=== PATIENT | female | born 1990 | race Caucasian/White ===

== ENCOUNTER 2024-10-15 08:10 | Outpatient (AMB) | payer OTHER, SELFPAY ==
--- OUTSIDE RECORDS SUMMARY | 2024-10-15 08:14 | XMS_ITS | Clinical Summary ---
Author Organization [facility] ity Address [address] [place] [address] Care Team Providers Care Hospitality Manager Name Role Phone Ariane Vang MD Primary Care Provider [phone] Social History Tobacco Use Types Packs/Day Years Used Date Smoking Tobacco: Never Assessed Comments Unknown Sex and Gender Information Value Date Recorded Sex Assigned at Not on file Legal Sex Female 10:38 AM EST Gender Identity Not on file Sexual Orientation Not on file Last Filed Vital Signs Vital Sign Reading Time Taken Comments Blood Pressure 126/68 07/21/2020 12:00 AM EST Pulse 76 07/21/2020 12:00 AM EST Temperature - - Respiratory Rate - - Oxygen Saturation - - Inhaled Oxygen Concentration - - Weight 137 kg (301 lb 15.8 oz) 07/21/2020 12:00 AM EST Height 175.3 cm (5' 9 ) 07/21/2020 12:00 AM EST Body Mass Index 44.6 07/21/2020 12:00 AM EST Plan of Treatment Health Maintenance Due Date Last Done Comments DTaP,Tdap,and Td Vaccines (1 - Tdap) 2009 Hepatitis B Vaccines (1 of 3 - 19+ 3-dose series) 2009 Cervical Cancer Screening: P ap Smear 11/27/2011 COVID-19 Vaccine (2023-2 5 season) 2024 09/20/2020, 08/23/2020 Influenza Vaccine (Season Ended) 2025 HIB Vaccines Aged Out No longer eligi ble based on patient's age to complete this topic HPV Vaccines Aged Out No longer eligi ble based on patient's age to complete this topic Hepatitis A Vaccines Aged Out No long er eligible based on patient's age to complete this topic IPV Vaccines Aged Out No longer eligi ble based on patient's age to complete this topic MMR Vaccines Aged Out No longer eligi ble based on patient's age to complete this topic Meningococcal ACWY Vaccine Aged Out N o longer eligible based on patient's age to complete this topic Meningococcal B Vaccine Aged Out No l onger eligible based on patient's age to complete this topic Pneumococcal Vaccine: Pediatrics (0 to 5 Years) and At-Risk Patients (6 to 64 Years) Aged Out No longer eligible b ased on patient's age to complete this topic RSV Immunization Patients Under 20 months Aged Out No longer eligible b ased on patient's age to complete this topic Varicella Vaccines Aged Out No longer eligible based on patient's age to complete this topic Care Teams Hospitality Manager Relationship Specialty Start Date End Date Ariane Vang MD PCP - General Family Medicine 12/28/19
--- NOTE | 2024-10-15 10:54 | A.OFFVIS_ITS ---
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 *SEE COMMENTS*: Details: Start time: 10.43am, End time: 11.28am ?I spent 40 minutes speaking with the patient on the phone plus an additional 5 minutes reviewing and updating records for a total of 45 minutes HPI Comments Details: Previous weight loss efforts: diet pills, self diets Wakes up: 7am, Sleeps: 12am Breakfast: 8am (breakfast sandwich) Lunch: 12pm (fruit cups, microwavable 300 calories meals) Dinner: 6.30pm (chicken, pork chops, rice, vegetables) Snacks: 9pm (candy, chips) Exercise: min stepper that tracks calories Beverages: Coffee: none, tea: none, soda: (one Monster per day for 300 calories), juice: home soda machine: 90 josefina/d), ETOH: none PFSH Medical History (Updated 10/15/24 @ 10:56 by Jorge Delacruz MD) Back pain Morbid obesity Surgical History (Updated 10/13/24 @ 15:44 by Debbie Farris CMA) Hx of wisdom tooth extraction Family History (Updated 10/13/24 @ 15:46 by Debbie Farris CMA) Mother Asthma Father No problems noted. Social History (Updated 10/13/24 @ 15:46 by Debbie Farris CMA) Alcohol intake: current Alcohol intake frequency: holidays/special occasions only Patient Tobacco Use Status: Never used Tobacco Telehealth Telehealth Telehealth Platform: Telephone Location of provider rendering services: practice address Location of patient: address on file Patient Identification confirmed using: Name, : Yes Telehealth method: voice only Patient verbally consented to treatment: Yes Patient verbally consented to billing insurance company: Yes Patient informed of any privacy concerns related to visit: Yes Minutes spent on Phone/Video with Pt.: 45 Assessment & Plan Assessment & Plan (1) Morbid obesity: Code(s): E66.01 - Morbid (severe) obesity due to excess calories Category: Medical Plan: 1.? Plan for lap sleeve gastrectomy. If diaphragmatic or ventral hernias are present at time of surgery, these will be repaired laparoscopically as well. I emphasized the importance of close follow-up, adherence to instructions and good communication. The surgery does not replace the need to change your lifestlyle which is the cause of the obesity problem. The surgery provides the motivation to try again to change your lifestyle, it reduces the appetite and make the transition to a better lifestyle easier and doubles the amount of weight you would lose compared to doing the lifestyle change without the surgery. You will need to be on a liquid diet with protein shakes for 2 weeks before surgery to maximize weight loss and boost your nutritional status to recover better from surgery and also for the first two weeks after surgery to let the stomach heal before we introduce other foods. After the first 2 weeks we will introduce protein bars and soft foods like scrambled eggs, cottage cheese and yogurt and after the 6th week will introduce meat, fish and cooked vegetables in small amounts. Over time you should be able to eat everything in small amounts. Side effects like nausea, vomiting, heartburn or abdominal pain are not common in the practice unless you are not following in the practice. This operation requires lifetime commitment to following in our practice and communication with me. You will much less weight and experience side effects if you don?t communicate or not following in the practice. Complications are rare and in our practice is about 1/10 of the national average. However, you can develop bleeding that may require transfusion (hasn?t happened for year in the practice), you may from complications (we did not have any deaths in the practice) and infections. Infections are usually a result of breakdown in communication or not understanding or following directions correctly. They are difficult to treat, they can happen during the first 6 weeks, they may require to be in the hospital for weeks or even months, not being able to eat by mouth and you may have drains and surgeries to try and correct the issue. Other risks and complications include possible conversion to an open procedure, leaks, small bowel obstruction, blood clots, cardiac, or pulmonary complications, as superintendent marine oil terminal complications such as ulcers, insufficient weight loss and vitamin deficiencies. 2. You will receive a link of our software leonora to generate an individualized nutritional and exercise plan specific for you. Please send me a screenshot of the plans you will generate Meal to include lean meat (beef, fish, pork, turkey, chicken), or japanese yogurt, or egg whites, or beans with a salad with olive oil and fruits (berries, pears, apples, kiwi). Avoid salt, breads, potatoes, rice, pasta, desserts. ?3. If you choose shakes, each shake would be drunk slowly, like coffee in a period of 2 hours. ?4. If you choose bars, cut each bar in 4 pieces and eat each piece in 30min ?to make each bar last 2 hours. ?5. I emphasized the importance of measuring accurately the food portion and measure it when serving the food in plate ?6. The meal portions include a specific number of forks of meat and salad. You always eat the meat portion but you can replace up to half of salad/vegetables portion with rice, potatoes or pasta, or a fruit ?if you like. The less you do it the better weight loss will be. ?7. One full-size fork is what it can be scooped on the fork without falling aside and not what can be bit with the fork. Use regular forks like those you find in a typical restaurant. ?8.? Please buy the body composition scale we discussed and send me weight measurements as soon as possible and then once a week. Always include your diet and exercise plan. 9. The best choice would be to purchase a stationary bike, elliptical or treadmill at home that can track calories. You can create and exercise plan with the [employer] leonora. Alternatively you could use the mini stepper you have to burn 300 calories per day, daily. ?10.?It is important of avoiding and for at least 18 months postoperatively and has been discussed at the infosession. ?11. Goal is to lose at least 1.5-2lbs per week ?12. Goal to lose 10% of your weight before surgery, which is about 33lbs. U ltimate weight goal: 290lbs before surgery 13. Please follow the diet plan exactly without any change. If you don't like something about the plan or you feel hungry you need to communicate with me so I can help you revise the plan. You should not change the plan yourself. 14. To be scheduled for EGD to assess the stomach's anatomy. The possibility of biopsies was discussed. Patient needs to avoid use of NSAIDs and aspirin for 1 week prior to EGD. You must be on liquids only the day before your endoscopy. Risks of perforation and bleeding was discussed with the patient. This will be an outpatient procedure with IV sedation. Orders: Orders Insulin Today E66.01 - Morbid (severe) obesity due to excess calories Complete Blood Count Auto Diff Today E66.01 - Morbid (severe) obesity due to excess calories IRON PROFILE Today E66.01 - Morbid (severe) obesity due to excess calories Vitamin B12 and Folate Today E66.01 - Morbid (severe) obesity due to excess calories C Reactive Protein Today E66.01 - Morbid (severe) obesity due to excess calories Vitamin A Today E66.01 - Morbid (severe) obesity due to excess calories Ferritin Today E66.01 - Morbid (severe) obesity due to excess calories Vitamin D 25-OH Total Today E66.01 - Morbid (severe) obesity due to excess calories XR chest 2V Today E66.01 - Morbid (severe) obesity due to excess calories ECG 12 lead EKG Today E66.01 - Morbid (severe) obesity due to excess calories Hemoglobin A1c Today E66.01 - Morbid (severe) obesity due to excess calories H Pylori Breath Test Today E66.01 - Morbid (severe) obesity due to excess calories Lipid Panel Today E66.01 - Morbid (severe) obesity due to excess calories Comprehensive Met. Panel Today E66.01 - Morbid (severe) obesity due to excess calories Zinc Today E66.01 - Morbid (severe) obesity due to excess calories Vitamin B1 Today E66.01 - Morbid (severe) obesity due to excess calories TSH reflex Free T4 Today E66.01 - Morbid (severe) obesity due to excess calories US abdomen comp w elastography Today E66.01 - Morbid (severe) obesity due to excess calories FL upper GI w air Today E66.01 - Morbid (severe) obesity due to excess calories Referrals Behavioral Health Referral E66.01 - Morbid (severe) obesity due to excess calories Nutrition/Dietitian Referral E66.01 - Morbid (severe) obesity due to excess calories
[2024-10-15 11:05] VITALS: BMI 47.7
== END 2024-10-15 11:29 | disposition home or self-care (01) ==
LOC: HO.HBS 08:10
PROVIDERS: Visit Provider Surgery
DX: E66.01 Morbid (severe) obesity due to excess calories (principal); Z68.42 Body mass index [BMI] 45.0-49.9, adult
CPT/HCPCS: 99204

== ENCOUNTER 2024-11-18 10:19 | Outpatient (REF) | payer OTHER, SELFPAY ==
--- NOTE | ~2024-11-18 | XR_ITS ---
EXAMINATION: XR CHEST CLINICAL INFORMATION: E66.01 - Morbid (severe) obesity due to excess calories COMPARISON: None available. TECHNIQUE: 2 views of the chest were obtained. FINDINGS: Linear density in the right mid third lower third lung zone likely represents atelectasis. Lungs are clear and well aerated. Heart size is within normal limits. No pleural effusion is present. XR/XR chest 2V IMPRESSION: Minimal linear atelectasis in the lower right lung. Electronically signed by: Kip Cruz MD 11/18/2024 11:18 AM EDT
[2024-11-18 10:35] LABS: MANUAL DIFF FLAG NO
--- NOTE | 2024-11-18 10:36 | ECG_ITS ---
Test Reason : e66.01 Blood Pressure : */* mmHG Vent. Rate : 59 BPM Atrial Rate : 59 BPM P-R Int : 140 ms QRS Dur : 80 ms QT Int : 418 ms P-R-T Axes : 53 19 21 degrees QTcB Int : 413 ms Sinus bradycardia with sinus arrhythmia Low voltage QRS Borderline ECG No previous ECGs available Referred By: Jorge Delacruz Electronically Signed By: Junior Tripp
[2024-11-18 10:53] LABS: Hematocrit 43.0 % (37.0-47.0); Hemoglobin 14.3 g/dl (12.0-16.0); Imm Gran Abs Auto 0.03 X10*3/uL (0.00-0.03); Imm Gran Pct Auto 0.3 % (0.0-0.4); Lymphocytes Absolute Auto 3.2 X10*3/uL (1.2-4.9); Mean Corpuscular HGB Conc 33.3 g/dl (31.0-35.0); Mean Corpuscular Hemoglobin 28.8 pg (27.0-33.0); Mean Corpuscular Volume 86.5 fL (80.0-98.0); NRBC Abs Auto 0.000 X10*3/uL (0.0-0.012); NRBC Pct Auto 0.0 /100WBC (0.0-0.2); Platelet Count 330 X10*3/uL (160-400); Red Blood Count 4.97 X10*6/uL (4.20-5.50); White Blood Count 11.0 X10*3/uL (4.8-10.8)
--- OUTSIDE RECORDS SUMMARY | 2024-11-18 11:11 | XMS_ITS | Clinical Summary ---
Author Organization [facility] ity Address [address] [place] [address] Care Team Providers Care Drill Press Set Up Operator Radial Name Role Phone Ariane Vang MD Primary Care Provider [phone] Social History Tobacco Use Types Packs/Day Years [...] 5 season) 2024 09/20/2020, 08/23/2020 Influenza Vaccine (#1) 2025 HIB Vaccines Aged Out No longer [...] 5 Years) and At-Risk Patients (6 to 49 Years) Aged Out No longer eligible b ased on patient's age to complete this topic RSV Immunization Patients Under 20 months Aged Out No longer eligible b ased on patient's age to complete this topic Varicella Vaccines Aged Out No longer eligible based on patient's age to complete this topic Care Teams Drill Press Set Up Operator Radial Relationship Specialty Start Date End Date Ariane Vang MD PCP - General Family Medicine 12/28/19
[2024-11-18 11:27] LABS: Alanine Aminotransferase 90 U/L (0-31); Albumin Level 4.5 g/dL (3.5-5.0); Alkaline Phosphatase 110 U/L (39-117); Anion Gap 12 (12-20); Aspartate Amino Transferase 39 U/L (5-31); Blood Urea Nitrogen 17 mg/dL (9-16); Calcium 9.3 mg/dL (8.4-10.2); Carbon Dioxide 27 mmol/L (22-29); Chloride 107 mmol/L (96-108); Cholesterol 159 mg/dL (<200); Estimated Glomerular Filt Rate > 60; HDL Cholesterol 38 mg/dL (>40); Iron 62 mcg/dL (30-160); Percent Iron Saturation 21 % (15-50); Potassium 4.0 mmol/L (3.3-5.1); Sodium 142 mmol/L (135-145); Total Iron Binding Capacity 292 mcg/dL (228-428); Total Protein 7.7 g/dL (6.5-8.0); Triglycerides 78 mg/dL (<150); Unsaturated Iron Binding 230 ug/dL
[2024-11-18 11:40] LABS: Hemoglobin A1C 137.0378 umol/L; Total Hemoglobin (HGBA1C) 3740.1619 umol/L
[2024-11-18 11:50] LABS: Ferritin 119 ng/mL (10-122)
[2024-11-18 11:52] LABS: Folate 9.2 ng/mL (> or = 4.0); Vitamin B12 655 pg/mL (200-900)
== END 2024-11-18 10:20 | disposition home or self-care (01) ==
LOC: HO.US 10:19
PROVIDERS: Visit Provider Surgery
DX: J98.11 Atelectasis (principal); E66.01 Morbid (severe) obesity due to excess calories
CPT/HCPCS: 36415; 71046; 80053; 80061; 82306; 82607; 82728; 82746; 83036; 83525; 83540; 84425; 84443; 84590; 84630; 85025; 86140; 93005

== ENCOUNTER → 2024-11-18 10:36 | Outpatient (BNV) | payer OTHER, SELFPAY | PROVIDERS: Visit Provider Internal Medicine Cardiovascular Disease | DX: R00.1 Bradycardia, unspecified (principal) | CPT/HCPCS: 93010 ==

== ENCOUNTER → 2024-11-18 10:49 | Outpatient (BNV) | payer OTHER, SELFPAY | PROVIDERS: Visit Provider Radiology Diagnostic Radiology | DX: J98.11 Atelectasis (principal) | CPT/HCPCS: 71046 ==

== ENCOUNTER 2024-11-24 12:13 | Outpatient (AMB) | payer OTHER, SELFPAY ==
--- NOTE | 2024-11-24 12:05 | A.OFFWM_ITS ---
Intake Intake Visit Reasons: VIDEO BH Intake Allergies No Known Allergies Allergy (Verified 10/15/24 10:54) Medication List - Last Reconciled 11/24/24 by Estelita Marin LM acetaminophen 500 mg PO Q6H PRN cetirizine (Zyrtec) 10 mg PO DAILY PRN fluoxetine (Prozac) 20 mg PO DAILY food supplemt, lactose-reduced 1 ea PO DAILY ibuprofen 200 mg PO Q6H PRN PFSH Medical History (Updated 11/24/24 @ 15:40 by Jorge Delacruz MD) Back pain Morbid obesity Surgical History (Updated 10/13/24 @ 15:44 by Debbie Farris CMA) Hx of wisdom tooth extraction Family History (Updated 10/13/24 @ 15:46 by Debbie Farris CMA) Mother Asthma Father No problems noted. Social History (Updated 10/13/24 @ 15:46 by Debbie Farris CMA) Alcohol intake: current Alcohol intake frequency: holidays/special occasions only Patient Tobacco Use Status: Never used Tobacco Behavioral Health Assessment Weight Management Therapy Therapy Notes Details PT is a 33 years old self-referred female, who presents for initial a visit to start assessment as part of surgical weight loss program. Presenting Concerns Referral Source WMP-Provider. Reason for referral Completion of behavioral health assessment as part of p rocess for weight-loss surgery. Precipitating Event Obesity Living Situation Current Living Situation Relative's/Guardian's Miladys At risk of losing current housing? No Satisfied with current living situation? Yes Comments Pt lives at her mother's home with her mother and younger brother. Social History Family history and relationship PT is single, never and has no children. Mom and bio-father several years ago, she re- and is now step-father. She has 1 younger brother who is 30. PT reports family dynamics are better now, she is civil with brother and is much better with mom now. 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 Developmental history and status None in the past. She had a neuropsychic assessment for ADHD, waiting for results. Social support Mother, co-workers. 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 Buddhism/Spirituality None reported Cultural/Ethnic information . Legal Involvement and History Current or historical involvement with the legal system? None reported. Education Highest grade completed HS 2 year trade school - Preferred learning style Learn by doing and Visual Currently enrolled in educational program? No Interested in further educational program? No Educational Interests/Skills Certification in Mechanics. 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 No Meaningful activities Video games. Financial Situation Describe current financial situation Comfortable Financial assistance? None Service Service? No Mental Health and Addiction Treatment Current/Past substance abuse? No Comments Alcohol: 2-3 x year. When drinks 2-3 drinks. Cigarettes/Tobacco: none. Cannabis/Edibles: 1 x year - Smoke Current/Past addictive behavior concerns? No Psychiatric history The patient received counseling during middle school for several months, possibly up to a year, but did not engage in further mental health treatment until approximately 3?4 years ago, when she began therapy at [facility] with Sarah Dinh. She currently attends counseling sessions every two weeks. The patient reports having been diagnosed with depression, anxiety, and PTSD. In addition to therapy, she recently initiated medication management services thro [facility]. She sees ROBERTO Garcia, and was started on Prozac (fluoxetine) 20 mg daily last week. She did the Neuropsychological testing with this organization recently for ADHD and will soon get the results. She has no history of psychiatric hospitalization and denies any past or current experiences of suicidal ideation (SI), suicide attempts (Sa), self-harm, or harm to others. She reports no history of mental health crises or safety concerns. Medical and Physical Health Summary Additional Medical History not covered in history Irrational periods. Sexual History concerns None reported. Physical exam in the last year? No (Have not seen a PCP in about 5 years. ) Pain Screening Current pain? Yes Pain in the last few months? Yes Comments Back pain. Manageable today. Trauma/Abuse History History of trauma? Yes (ROBINA: 7) Questionnaires PHQ-9 Over the last 2 weeks, how often have you been bothered by any of the following problems? 1. Little interest or pleasure in doing things: nearly every day 2. Feeling down, depressed, or hopeless: more than half the days 3. Trouble falling or staying asleep, or sleeping too much: several days 4. Feeling tired or having little energy: nearly every day 5. Poor appetite or overeating: more than half the days 6. Feeling bad about yourself - or that you are a failure or have let yourself or your family down: not at all 7. Trouble concentrating on things, such as reading the newspaper or watching television: nearly every day 8. Moving or speaking so slowly that other people could have noticed. Or the opposite - being so fidgety or restless that you have been moving around a lot more than usual: several days 9. Thoughts that you would be better off or of hurting yourself in some way: not at all Total score: 15 Depression Screening Interpretation: Positive (From new PT pack completed on 10/12/24 - new one will be administered at next visit.) Depression Screening Follow-up: Existing condition and In treatment Depression Screening Done: Yes Source: Developed by Drs. Clinton Rodriguez, Gregoria Henao, Antonio Lee and colleagues, with an educational travis from [employer]ourse. Assessment & Plan Assessment & Plan (1) PTSD (post-traumatic stress disorder): Code(s): F43.10 - Post-traumatic stress disorder, unspecified (2) Depression, unspecified: Code(s): F32.A - Depression, unspecified (3) Pre-bariatric surgery psychological evaluation: Code(s): Z71.89 - Other specified counseling Plan The patient was not cleared today as the assessment was not completed. The patient will return in 2-4 weeks to continue the evaluation. Next appointment: 12/16/24 Telehealth Telehealth Telehealth Platform: [facility] Location of provider rendering services: other (Home office. [place], [place]) Location of patient: address on file Patient Identification confirmed using: Name, : Yes Telehealth method: video Patient verbally consented to treatment: Yes Patient verbally consented to billing insurance company: Yes Patient informed of any privacy concerns related to visit: Yes Minutes spent on Phone/Video with Pt.: 55 Coding Level of Care Code New Pt Tele Psy Diag Eval (63010) Patient Type New Diagnoses PTSD (post-traumatic stress disorder) F43.10 Depression, unspecified F32.A Pre-bariatric surgery psychological evaluation Z71.89 Time Spent (min) 55
--- OUTSIDE RECORDS SUMMARY | 2024-11-24 13:13 | XMS_ITS | Clinical Summary ---
Author Organization [facility] ity Address [address] [place] [address] Care Team Providers Care Irrigation Installation Specialist Name Role Phone Ariane Vang MD Primary Care Provider [phone] Social History Tobacco Use Types Packs/Day Years [...] age to complete this topic Care Teams Irrigation Installation Specialist Relationship Specialty Start Date End Date Ariane Vang MD PCP - General Family Medicine 12/28/19
== END 2024-11-24 13:10 | disposition home or self-care (01) ==
LOC: HO.HBST 12:13
PROVIDERS: Visit Provider Counselor Mental Health
DX: F43.10 Post-traumatic stress disorder, unspecified (principal); F32.A Depression, unspecified; Z71.89 Other specified counseling
CPT/HCPCS: 90791

== ENCOUNTER 2024-12-16 12:11 | Outpatient (AMB) | payer OTHER, SELFPAY ==
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
--- OUTSIDE RECORDS SUMMARY | 2024-12-16 12:53 | XMS_ITS | Clinical Summary ---
Author Organization [facility] ity Address [address] [place] [address] Care Team Providers Care Bunch Breaker Name Role Phone Ariane Vang MD Primary Care Provider Social History Tobacco Use Types Packs/Day Years [...] Vaccine (2023-2 5 season) 2024 09/20/2020, 08/23/2020 Depression Screening 05/14/2024 Influenza Vaccine (#1) 2025 HIB Vaccines Aged [...] age to complete this topic Care Teams Bunch Breaker Relationship Specialty Start Date End Date Ariane Vang MD PCP - General Family Medicine 12/28/19
== END 2024-12-16 13:14 | disposition home or self-care (01) ==
LOC: HO.HBST 12:11
PROVIDERS: Visit Provider Counselor Mental Health
DX: F32.1 Major depressive disorder, single episode, moderate (principal); F43.10 Post-traumatic stress disorder, unspecified; Z71.89 Other specified counseling
CPT/HCPCS: 90834

== ENCOUNTER 2025-02-03 09:29 | Outpatient (REF) | payer OTHER, SELFPAY ==
--- NOTE | ~2025-02-03 | US_ITS ---
EXAMINATION: US COMPLETE ABDOMEN WITH LIVER ELASTOGRAPHY CLINICAL INFORMATION: E66.01 - Morbid (severe) obesity due to excess calories COMPARISON: None available. TECHNIQUE: Real-time imaging of the abdominal viscera. Noninvasive ultrasound liver fibrosis assessment is performed using Juwan ElastPQ point quantification shear wave elastography (pSWE) with a C5-2 MHz transducer. Multiple elastography samples are obtained. FINDINGS: PANCREAS: The visualized pancreatic head and body are normal in appearance. The remainder of the pancreas is obscured from visualization by the overlying bowel gas. ABDOMINAL AORTA: No aortic aneurysm is seen. INFERIOR VENA CAVA: Visualized portions are normal. LIVER: Liver is hyperechogenic.. The right lobe measures 9 cm in length. The left lobe measures 16 cm in length. Main portal vein is patent with a normal direction of flow. It demonstrates a continuous venous waveform. Shear wave liver elastography median stiffness is 1.6 m/s (reference: normal median stiffness is 1.3 m/s or less). IQR/median stiffness to assess sampling precision is 0.2 (reference: good quality data set is IQR/median stiffness of 0.15 or less). GALLBLADDER: The gallbladder is physiologically distended without evidence of stones, sludge, polyps, wall thickening or pericholecystic fluid. COMMON BILE DUCT: Normal in caliber measuring 0.6 cm in diameter. RIGHT KIDNEY: No hydronephrosis. No renal calculi or focal parenchymal lesions. The kidney measures 12.5 cm in maximum dimension. LEFT KIDNEY: No hydronephrosis. No renal calculi or focal parenchymal lesions. The kidney measures 11 cm in maximum dimension. SPLEEN: Unremarkable. The spleen measures 11 cm in maximum dimension. FREE FLUID: None seen. US/US abdomen comp w elastography IMPRESSION: 1. Echogenic liver is consistent with hepatic steatosis and/or hepatocellular disease. 2. Liver elastography: Although measurements appear to rule out compensated advanced chronic liver disease, there is statistical variability of the sampling which decreases accuracy. Body habitus restricted sampling. REFERENCE: Society of Radiologists in Ultrasound Liver Stiffness Thresholds (2020): LIVER STIFFNESS THRESHOLDS: *Liver Stiffness equal or less than 1.3 m/s: High probability of being normal. *Liver Stiffness less than 1.7 m/s: In the absence of other known clinical signs, rules out compensated advanced chronic liver disease. *Liver Stiffness 1.7-2.1 m/s: Suggestive of compensated advanced chronic liver disease but need further test for confirmation. *Liver Stiffness over 2.1 m/s: Rules in compensated advanced chronic liver disease. *Liver Stiffness over 2.4 m/s: Suggestive of clinically significant portal hypertension. QUALITY OF DATA SET: *IQR/Median value equal or less than 0.15 implies a quality data set. *IQR/Median value over 0.15 implies a poor quality data set. SIGNIFICANT CHANGE FROM PRIOR EXAM: Significant change if liver stiffness measurement is 10% or greater from prior exam. OTHER CONSIDERATIONS: The stage of liver fibrosis may be overestimated in the setting of acute hepatitis, liver inflammation, elevated liver function tests, hepatic vascular congestion, obstructive cholestasis, non-fasting state, and infiltrative diseases such as amyloidosis and lymphoma. In some patients with NAFLD, the liver stiffness thresholds for compensated advanced chronic liver disease may be lower. In causes other than viral hepatitis and NAFLD, liver stiffness thresholds are not well established. Electronically signed by: Kip Cruz MD 02/03/2025 10:11 AM EDT
--- OUTSIDE RECORDS SUMMARY | 2025-02-03 11:14 | XMS_ITS | Clinical Summary ---
Author Organization [facility] ity Address [address] [place] [address] Care Team Providers Care Rubber Roller Grinder Name Role Phone Ariane Vang MD Primary Care Provider [phone] Social History Tobacco Use Types Packs/Day Years [...] Cervical Cancer Screening: P ap Smear 11/27/2011 Depression Screening 05/14/2024 COVID-19 Vaccine (3 - 2024-2 6 season) 2025 09/20/2020, 08/23/2020 Influenza Vaccine (#1) 2025 HIB [...] age to complete this topic Care Teams Rubber Roller Grinder Relationship Specialty Start Date End Date Ariane Vang MD PCP - General Family Medicine 12/28/19
== END 2025-02-03 09:30 | disposition home or self-care (01) ==
LOC: HO.US 09:29
PROVIDERS: Visit Provider Surgery
DX: E66.01 Morbid (severe) obesity due to excess calories (principal)
CPT/HCPCS: 76700; 76981

== ENCOUNTER → 2025-02-03 09:31 | Outpatient (BNV) | payer OTHER, SELFPAY | PROVIDERS: Visit Provider Radiology Diagnostic Radiology | DX: K76.0 Fatty (change of) liver, not elsewhere classified (principal); R16.0 Hepatomegaly, not elsewhere classified | CPT/HCPCS: 76700 ==

== ENCOUNTER 2025-02-03 09:58 | Day surgery (SDC) | payer OTHER, SELFPAY ==
--- OUTSIDE RECORDS SUMMARY | 2024-10-27 11:05 | XMS_ITS | Clinical Summary ---
Author Organization [facility] ity Address [address] [place] [address] Care Team Providers Care Animal Nutrition Teacher Name Role Phone Ariane Vang MD Primary Care Provider [phone] Social History Tobacco Use Types Packs/Day Years [...] Screening: P ap Smear 11/27/2011 COVID-19 Vaccine ( - 2023-2 5 season) 2024 09/20/2020, 08/23/2020 Influenza Vaccine [...] age to complete this topic Care Teams Animal Nutrition Teacher Relationship Specialty Start Date End Date Ariane Vang MD PCP - General Family Medicine 12/28/19
[2024-11-13 13:42] VITALS: BMI 47.7
--- NOTE | 2024-11-17 09:42 | HO.ANESPROP2 ---
HPI - Anesthesia Eval Consult details Narrative: 33yo F for Upper Endoscopy, 12/25/24 BMI 47 PMFSH Active Problems Active Problems: All Active Problems Back pain (Acute) Morbid obesity (Acute) Past Medical History Medical History (Updated 11/24/24 @ 15:40 by Jorge Delacruz MD) Back pain Morbid obesity Family History Family History (Updated 10/13/24 @ 15:46 by Debbie Farris CMA) Mother Asthma Father No problems noted. Surgical History Surgical History (Updated 10/13/24 @ 15:44 by Debbie Farris CMA) Hx of wisdom tooth extraction Social History Social History (Updated 10/13/24 @ 15:46 by Debbie Farris CMA) Alcohol intake: current Alcohol intake frequency: holidays/special occasions only Patient Tobacco Use Status: Never used Tobacco Meds Allergies Allergy/AdvReac Type Severity Reaction Status Date / Time No Known Allergies Allergy Verified 10/15/24 10:54 Home Medications ?Medication ?Instructions ?Recorded ?Confirmed ?Last Taken ?Type acetaminophen 500 mg capsule 500 mg PO Q6H PRN Pain 10/14/24 11/13/24 Unknown History cetirizine 10 mg capsule (Zyrtec) 10 mg PO DAILY PRN allergies 10/14/24 11/13/24 Unknown History food supplemt, lactose-reduced 1 ea PO DAILY 10/14/24 11/13/24 Unknown History 0.04 gram-1 kcal/mL oral liquid ibuprofen 200 mg tablet 200 mg PO Q6H PRN Pain 10/14/24 11/13/24 Unknown History fluoxetine 20 mg capsule (Prozac) 20 mg PO DAILY 11/24/24 11/24/24 Unknown History Exam Height,Weight and Vital Signs: Height 5 ft 9 in Weight 146.624 kg Assessment and Plan Assessment Anesthesia Assessment: Chart Reviewed
--- NOTE | 2025-01-30 11:39 | HO.ANESPROP2 ---
HPI - Anesthesia Eval Consult details Narrative: 34 yr old female for Upper Endoscopy BMI 48 PMFSH Active Problems Active Problems: All Active Problems (Updated 11/24/24 @ 15:40 by Jorge Delacruz MD) Vitamin A deficiency (Acute) Vitamin D deficiency (Acute) Back pain (Acute) Morbid obesity (Acute) Past Medical History Medical History (Updated 11/24/24 @ 15:40 by Jorge Delacruz MD) Back pain Morbid obesity Family History Family History (Updated 10/13/24 @ 15:46 by Debbie Farris CMA) Mother Asthma Father No problems noted. Surgical History Surgical History (Updated 10/13/24 @ 15:44 by Debbie Farris CMA) Hx of wisdom tooth extraction Social History Social History (Updated 10/13/24 @ 15:46 by Debbie Farris CMA) Alcohol intake: current Alcohol intake frequency: holidays/special occasions only Patient Tobacco Use Status: Never used Tobacco Meds Allergies Allergy/AdvReac Type Severity Reaction Status Date / Time No Known Allergies Allergy Verified 10/15/24 10:54 Home Medications ?Medication ?Instructions ?Recorded ?Confirmed ?Last Taken ?Type acetaminophen 500 mg capsule 500 mg PO Q6H PRN Pain 10/14/24 11/13/24 Unknown History cetirizine 10 mg capsule (Zyrtec) 10 mg PO DAILY PRN allergies 10/14/24 11/13/24 Unknown History food supplemt, lactose-reduced 1 ea PO DAILY 10/14/24 11/13/24 Unknown History 0.04 gram-1 kcal/mL oral liquid ibuprofen 200 mg tablet 200 mg PO Q6H PRN Pain 10/14/24 11/13/24 Unknown History fluoxetine 20 mg capsule (Prozac) 20 mg PO DAILY 11/24/24 11/24/24 Unknown History Exam Height,Weight and Vital Signs: Height 5 ft 9 in Weight 146.624 kg Pertinent Lab Results Pertinent Lab Results: Laboratory Tests 11/18/24 10:33 WBC 11.0 H RBC 4.97 Hgb 14.3 Hct 43.0 Plt Count 330 Sodium 142 Potassium 4.0 BUN 17 H Creatinine 0.68 Narrative Narrative: EKG 11/2024 Vent. Rate : 59 BPM Atrial Rate : 59 BPM P-R Int : 140 ms QRS Dur : 80 ms QT Int : 418 ms P-R-T Axes : 53 19 21 degrees QTcB Int : 413 ms Sinus bradycardia with sinus arrhythmia Low voltage QRS Borderline ECG No previous ECGs available
--- NOTE | 2025-02-03 10:50 | HO.ANESPROP2 ---
[facility] Active Problems Active Problems: All Active Problems (Updated 11/24/24 @ 15:40 by Jorge Delacruz MD) Vitamin A deficiency (Acute) Vitamin D deficiency (Acute) Back pain (Acute) Morbid obesity (Acute) Past Medical History Medical History Back pain Morbid obesity Family History Family History Mother Asthma Father No problems noted. Surgical History Surgical History Hx of wisdom tooth extraction History of Problems with Anesthesia: No Social History Social History Alcohol intake: current Alcohol intake frequency: holidays/special occasions only Patient Tobacco Use Status: Never used Tobacco Use of substances other than those prescribed or required for medical reasons: No Are you DNR?: No Advance Directives: No Advance Directives Information Provided: Yes : No Poor oral hygiene: Yes Meds Allergies Allergy/AdvReac Type Severity Reaction Status Date / Time No Known Allergies Allergy Verified 10/15/24 10:54 Home Medications ?Medication ?Instructions ?Recorded ?Confirmed ?Last Taken ?Type acetaminophen 500 mg capsule 500 mg PO Q6H PRN Pain 10/14/24 11/13/24 Unknown History cetirizine 10 mg capsule (Zyrtec) 10 mg PO DAILY PRN allergies 10/14/24 11/13/24 Unknown History food supplemt, lactose-reduced 1 ea PO DAILY 10/14/24 11/13/24 Unknown History 0.04 gram-1 kcal/mL oral liquid ibuprofen 200 mg tablet 200 mg PO Q6H PRN Pain 10/14/24 11/13/24 Unknown History fluoxetine 20 mg capsule (Prozac) 20 mg PO DAILY 11/24/24 11/24/24 Unknown History Exam Height,Weight and Vital Signs: Height 5 ft 9 in Weight 146.624 kg Airway Mallampati Class: III (globally poor dentition) TM Dist: >3cm Neck ROM: Full Loose/Missing/Broken Teeth: Yes, Upper and Lower (no loose teeth but many broken) Heart: RRR Lungs: CTA Assessment and Plan Assessment Anesthesia Assessment: Anesthesia Plan Discussed and Chart Reviewed Final Anesthetic Review History of Problems with Anesthesia: No NPO: Yes ASA Class: III Final Preanesthetic Review: Meds/Allgs Chart Reviewed, Consent Obtained/Reviewed and Anes Risks/Benef Reviewed Patient Risk: Intermediate Procedure Risk: Intermediate Anesthetic Plan Anesthetic Plan: MAC: Disposition: Standard PACU
[2025-02-03 11:26] VITALS: BMI 43.0
[2025-02-03 11:40] VITALS: BP 138/80; PULSE 70; RESP 16; TEMP 36.8; O2SAT 99
[2025-02-03 11:54] LABS: UPreg QC Valid YES
[2025-02-03] MEDS: Lactated Ringers 1,000 ML 100 ML IVCONT (12:00)
--- NOTE | 2025-02-03 12:43 | MHC.SHP ---
Pre-Procedural Eval Section A - 24 Hr Update-Section A only Date of Service: 02/03/25 The patient is an INPATIENT: No The patient has been examined within 24 hours of the surgical procedure. The History & Physical has been completed within 30 days and I have reviewed it.: Yes Section B - Complete if H&P > 30 days Chief Complaint: Morbid (severe) obesity due to excess calories Relevant Family History (Specify if Yes): No Relevant Social History: None Present Medications: None Medical History: No relevant PMH History of Previous Operations: No relevant previous surgery Allergies: Allergies Allergy/AdvReac Type Severity Reaction Status Date / Time No Known Allergies Allergy Verified 10/15/24 10:54 Review of Systems Sugical H&P ROS: Negative: Constitution, Cardiovascular, Respiratory, Neurological, Psychiatric, Hem-Onc, Allergic/Immunologic, Gastrointestinal, Genitourinary, Musculoskeletal, Integumentary, Endocrine and Eyes/Ears/Nose/Throat Exam Surgical H&P Exam: Normal: HEENT, Normal: Heart, Normal: Lungs, Normal: Extremities, Normal: Abdomen, Normal: Skin and Normal: Neurological Plan Diagnosis/Plan: Unchanged (EGD to assess the stomach's anatomy. Risks of bleeding and perforation were discussed with the patient and she is in agreement with the plan.) I have reviewed the history and physical and performed a pertinent physical examination on my patient. No changes have occurred unless specified. Time Spent With Patient Time: Total time managing care of this patient today ____ minutes.
--- NOTE | 2025-02-03 12:45 | P.BOP_ITS ---
Brief Operative Note Date of Service: 02/03/25 Pre-op diagnosis: Morbid obesity Post-op diagnosis: same (1) small diaphragmatic hernia, 2) esophagitis) Procedure: PROCEDURE DATE: 02/03/2025 PREOPERATIVE DIAGNOSIS: Morbid obesity POSTOPERATIVE DIAGNOSIS: ?Same as above. 1) small diaphragmatic hernia, 2) esophagitis PROCEDURE: [id number] with biopsies Surgeon: ?Marcos Delacruz M.D.. Ph.D. Duplicator Punch Operator: None ? Anesthesia: IV sedation Estimated blood loss: ?Minimal FINDINGS AND PROCEDURE: ? OPERATIVE INDICATIONS: ?The patient is a 34 year old female known to me who is interested in bariatric surgery. Based on this information I recommended an upper endoscopy to evaluate the patient's symptoms. Risks and complications of the surgery were discussed with the patient in advance particularly the possibility of perforation or bleeding that may require surgical intervention. The patient understood the risks and was in agreement with the plan. ? PROCEDURE: After informed consent was obtained by the patient, the patient was ?transferred to the Operating Room and was placed in the supine position.? After successful induction of IV sedation, a mouth block was inserted and the patient was placed in the left lateral decubitus position. An upper endoscopy was performed next, the oropharynx and esophagus appeared within the normal limits. There was a 3cm reducible hiatal hernia. The z-line was irregular with tongues of gastric mucosa protruding into the esophagus. Two biopsies were obtained from the distal esophagus 2-3 cm proximal to the GE junction and two additional biopsies from the GE junction. The stomach was entered and it appeared to be of normal size. There was no gastritis. There was no stricture or ulcer. A biopsy was obtained from the gastric fundus and the antrum. No significant bleeding was noted from any of the biopsy sites. Retroflexion of the scope confirmed the presence of a normal GE junction. The scope was then advanced into the duodenum which appeared to be normal as well. At that point the duodenum ?and the stomach were decompressed and the scope was withdrawn from the patient's mouth. The patient extubated and was transferred in stable condition to the Recovery Room for further care. I was present and performed all steps of the procedure. There were no residents to assist with this case. Marcos Delacruz M.D., Ph.D. Surgeon: Jorge Delacruz MD Was an Duplicator Punch Operator used for this Procedure?: No Estimated blood loss (mL): 0 IV fluids (mL): 400 Urine output (mL): 0 (No [place]ireles to record output) Pathology: other (1) antrum x1, 2) fundus x1, 3) GE junction x2, 4) distal esophagus x2) Condition: stable Disposition: PACU
[2025-02-03 13:25] VITALS: BP 118/58; PULSE 87; RESP 18; TEMP 36.6; O2SAT 99
[2025-02-03 13:35] VITALS: BP 113/51; PULSE 79; RESP 18; TEMP 37.2; O2SAT 95
== END 2025-02-03 13:56 | disposition home or self-care (01) ==
PROVIDERS: Nurse Practitioner; Visit Provider Surgery
PROC: 0DJ08ZZ Inspection of Upper Intestinal Tract, Via Natural or Artificial Opening Endoscopic (ICD-10-PCS; CPT 43235; principal; 2025-02-03 17:00)
DX: E66.01 Morbid (severe) obesity due to excess calories (principal); Z68.42 Body mass index [BMI] 45.0-49.9, adult; K20.90 Esophagitis, unspecified without bleeding; K44.9 Diaphragmatic hernia without obstruction or gangrene; M54.9 Dorsalgia, unspecified; Z79.1 Long term (current) use of non-steroidal anti-inflammatories (NSAID); Z79.899 Other long term (current) drug therapy
CPT/HCPCS: 43239; 81025; 88305; 88313; 88342; J2003; J2250; J2704

== ENCOUNTER → 2025-02-03 09:58 | Outpatient (BNV) | payer OTHER, SELFPAY | PROVIDERS: Visit Provider Surgery | DX: E66.01 Morbid (severe) obesity due to excess calories (principal); Z68.42 Body mass index [BMI] 45.0-49.9, adult; K20.90 Esophagitis, unspecified without bleeding | CPT/HCPCS: 43239 ==